=== PATIENT | female | born 1990 | race African-American/Black ===

== ENCOUNTER 2020-09-30 23:43 | Emergency (ER) | payer MEDICAID ==
[~2020-09-30] VITALS: Ht 162.6 cm; Wt 59.4 kg
[2020-09-30 23:45] VITALS: BP 131/82
== END 2020-10-01 02:51 | disposition home or self-care (01) ==
LOC: ER 23:44
DX: N39.0 Urinary tract infection, site not specified (principal); Z32.02 Encounter for pregnancy test, result negative